=== PATIENT | female | born 1955 | race Two or more races ===

== ENCOUNTER 2023-10-01 13:00 | Day surgery (SDC) | payer MEDICARE ==
[2023-10-01] VITALS (20 sets, daily range): BP systolic 127–153; BP diastolic 74–93
[~2023-10-01] VITALS: Ht 154.9 cm; Wt 58.4 kg
[2023-10-01] MEDS ORDERED: CeFAZolin Sodium 2,000 MG in NS 50 ML IV SCH (13:55)
[2023-10-01] MEDS ORDERED: Lactated Ringer's 1,000 ML IV SCH ×2 (13:55→16:20)
[2023-10-01] MEDS ORDERED: Bupivacaine 0.5% HCl 5 MG/ML 30MLVIAL ONE (13:59)
[2023-10-01] MEDS ORDERED: OMEP20ER PO (14:00)
--- NOTE | 2023-10-01 14:09 | NUR ---
History, Chart, Medications and Allergies reviewed before start of procedure. Patient up to Ambulate independently. Gait steady. Pre-Op teaching done. Pt verbalizes understanding. Patient confirms NPO status and agrees with scheduled surgery. Lungs clear T/O to Auscultation. Patient States Post-Procedure ride home has been arranged.
[2023-10-01] MEDS ORDERED: propofoL 20 ML IV ONE (14:13)
[2023-10-01] MEDS ORDERED: FentaNYL Citrate 50 MCG/ML 5 ML Injection ONE (14:13)
[2023-10-01] MEDS ORDERED: Dexamethasone Sod Phos 10 MG/ML 1ML VIAL ONE (14:51)
[2023-10-01] MEDS ORDERED: EpiNEPhrine 1 MG/1 ML 1ML Vial ONE (14:51)
--- NOTE | 2023-10-01 14:58 | NUR ---
10/01/23 1458 Michael Curtis 30 ML'S 0.5% BUPIVACAINE PLAIN MIXED WITH 0.15MG EPI TO ACHIEVE SOLUTION OF 0.5% BUPIVACAINE WITH EPI 1:200,000. MIXTURE VERIFIED BY DR CARREON AND ORD.[email or web address].
[2023-10-01] MEDS ORDERED: Sugammadex Sodium 200 MG/2ML SDV (100 MG/ML) ONE (15:23)
[2023-10-01] MEDS ORDERED: Ondansetron HCl 2 MG / ML 2ML Vial ONE (15:24)
[2023-10-01] MEDS ORDERED: ePHEDrine Sulfate 50 MG/ML 1ML Injection ONE (15:27)
[2023-10-01] MEDS ORDERED: FLU VACC QS2023-24(6MOS UP)/PF 60 MCG/0.5 ML SYRINGE IM SCH (16:15)
[2023-10-01] MEDS ORDERED: DiphenhydrAMINE HCL 25 MG Cap PO PRN (16:15)
[2023-10-01] MEDS ORDERED: Metoclopramide HCl 10 MG Tab PO PRN (16:20)
[2023-10-01] MEDS ORDERED: Ondansetron HCl 2 MG / ML 2ML Vial IV PRN (16:20)
[2023-10-01] MEDS ORDERED: Metoclopramide HCl 5MG / ML 2ML Vial IV PRN (16:20)
[2023-10-01] MEDS ORDERED: Ondansetron 4 MG TAB PO PRN (16:20)
[2023-10-01] MEDS ORDERED: Naloxone HCl 0.4MG / ML 1ML Vial IV PRN (16:20)
[2023-10-01] MEDS ORDERED: Simethicone 80 MG Chew PO PRN (16:25)
[2023-10-01] MEDS ORDERED: HYDROmorphone HCl/Pf 1MG SYR IV PRN (16:25)
[2023-10-01] MEDS ORDERED: OxyCODONE HCL 5 MG TAB PO PRN (16:25)
[2023-10-01] MEDS ORDERED: Ketorolac Tromethamine 15mg Vial IV PRN (16:30)
[2023-10-01] MEDS ORDERED: FentaNYL Citrate 50 MCG/ML 2 ML Injection ONE (16:37)
[2023-10-01] MEDS ORDERED: Ketorolac Tromethamine 30mg Vial ONE (16:48)
--- NOTE | 2023-10-01 17:44 | NUR ---
ARRIVAL FROM PACU PT SLID FROM GURNEY TO BED WITH SLIDE SHEET. S/P VAGINAL HYSTER. REPORTS PAIN AT 2/10 IS AWAKE AND TALKING TO FAMILY. TOLERATING WATER AND JELLO AT THIS TIME. SMALL AMOUNT OF DRAINAGE ON PERIPAD. RM IN PLACE. PATENT. PATIENT EDUCATED ON PAIN MANAGEMENT AND CALLING IF PAIN BECOMES WORSE. CALL LIGHT AT BEDSIDE.
[2023-10-01] MEDS ORDERED: Acetaminophen 325 MG TABLET PO SCH (18:00)
[2023-10-02 04:01] VITALS: BP 144/85
[2023-10-02 04:25] LABS: BASOPHILS ABSOLUTE AUTO 0.02 K/mm3 (0.00-0.23); BASOPHILS PERCENT AUTO 0 % (0-2); EOSINOPHILS PERCENT AUTO 0 % (0-6); Hematocrit 34.7 % (33.0-51.0); Hemoglobin 11.6 g/dL (11.5-16.0); IMMATURE GRAN ABSOLUTE AUTO 0.04 K/mm3 (0.00-0.10); IMMATURE GRAN PERCENT AUTO 0 % (0-1); LYMPHOCYTES ABSOLUTE AUTO 1.09 K/mm3 (0.84-5.20); LYMPHOCYTES PERCENT AUTO 10 % (21-46); MONOCYTES ABSOLUTE AUTO 0.41 K/mm3 (0.16-1.47); MONOCYTES PERCENT AUTO 4 % (4-13); Mean Corpuscular HGB 28.5 pg (26.0-34.0); Mean Corpuscular HGB Conc 33.4 g/dL (31.5-36.5); Mean Corpuscular Volume 85 fL (80-100); Mean Platelet Volume 10.6 fL (9.1-12.4); NEUTROPHILS ABSOLUTE AUTO 9.77 K/mm3 (1.96-9.15); NEUTROPHILS PERCENT AUTO 86 % (41-73); Platelet Count 242 K/mm3 (150-400); RDW Coefficient Variation 12.6 % (11.7-14.2); RDW Standard Deviation 39.2 fL (35.1-46.3); Red Blood Cell Count 4.07 M/mm3 (3.80-5.20); White Blood Cell Count 11.33 K/mm3 (4.00-11.30)
--- NOTE | 2023-10-02 04:44 | NUR ---
SHIFT SUMMARY POD1 VAGINAL HYSTER. MINIMAL/MODERATE SPOTTING NOTED ON SCHUYLER PAD. RM TO BE RMEOVED THIS AM. VSS. PT SLEPT WELL T/O THE NIGHT. 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 MEDICATED FOR PAIN WITH PRN'S. PT REPORTS MINIMAL RELIEF FROM OXY, BUT TORADOL APPEARED TO HELP THE MOST. NO ACUTE EVENTS NOTED, PLAN TO D/C TODAY.
[2023-10-02] MEDS ORDERED: Omeprazole 20 MG CapCR PO PRN (06:00)
[2023-10-02 07:24] VITALS: BP 126/84
[2023-10-02] MEDS ORDERED: OXYC5 PO (08:45)
[2023-10-02] MEDS ORDERED: SIME80CH PO (08:46)
--- NOTE | 2023-10-02 10:36 | NUR ---
DISCHARGE POD 1 VAGINAL HYSTER PT CONTINUED TO HAVE SCANT/SMALL AMOUNT OF DRAINAGE ON SCHUYLER PAD. VOIDING WELL, POST VOID OF 100. TOLERATING DIET WELL, AMBULATING WELL. ALL INSTRUCTIONS GONE OVER WITH PATIENT AND SPOUSE. NO FURTHER QUESTIONS AT THIS TIME. IV REMOVED WNL. ESCORTED OUT VIA WHEELCHAIR. ALL BELONGINGS WITH PATIENT.
== END 2023-10-02 10:38 | disposition home or self-care (01) ==
LOC: ORSCMMR 13:00 → ORD 14:30 → ORSCMMR 14:30 → SURS 17:04 → ORSCMMR 10-02 10:38
PROVIDERS: Obstetrics & Gynecology
PROC: 0JQC0ZZ Repair Pelvic Region Subcutaneous Tissue and Fascia, Open Approach (ICD-10-PCS; principal; 2023-10-01 14:30)
PROC: 0UT97ZZ Resection of Uterus, Via Natural or Artificial Opening (ICD-10-PCS; principal; 2023-10-01 14:30)
DX: N95.0 Postmenopausal bleeding (principal); N81.6 Rectocele; N81.10 Cystocele, unspecified; N84.1 Polyp of cervix uteri; K21.9 Gastro-esophageal reflux disease without esophagitis; Z79.899 Other long term (current) drug therapy
CPT/HCPCS: 36415; 85025; 88307; 94760; A9270; J0171; J0690; J1100; J1885; J2405; J2704; J3010; J7120